=== PATIENT | female | born 1960 | race Caucasian/White ===

== ENCOUNTER 2023-02-16 06:53 | Day surgery (SDC) | payer OTHER ==
[~2023-02-16] VITALS: Ht 162.6 cm; Wt 58.5 kg
[2023-02-16] MEDS ORDERED: ESTRADIOL1 M1 PO (07:12)
--- NOTE | 2023-02-16 07:23 | NUR ---
02/16/23 0723 Sarita Figueroa 0713, SCOT 0701
[2023-02-16 08:35] VITALS: BP 122/76
== END 2023-02-16 08:55 | disposition home or self-care (01) ==
LOC: ORSCSDS 06:53
PROVIDERS: Ophthalmology
PROC: 08DJ3ZZ Extraction of Right Lens, Percutaneous Approach (ICD-10-PCS; principal; 2023-02-16 08:00)
DX: H25.11 Age-related nuclear cataract, right eye (principal); I10 Essential (primary) hypertension; Z79.899 Other long term (current) drug therapy
CPT/HCPCS: J2001; J2250; J3010; J3301; J7040; V2632

== ENCOUNTER 2025-03-26 08:04 | Day surgery (SDC) | payer OTHER ==
[~2025-03-26] VITALS: Ht 162.6 cm; Wt 61.4 kg
[~2025-03-26 08:04] MED LIST: Balanced Salt Epinephrine Irrigation Solution 500 mL IR SCH; ESTRADIOL1 M1 PO; Moxifloxacin HCL 0.5 MG/0.1 ML 0.4MLSYR LEFTEYE SCH; Ondansetron 4 MG SoluTab MM PRN; PHENYLEPHRINE\\TROPICAMIDE\\TETRACAINE OPHTHALMIC DILATING SOLN LEFTEYE PRN; Povidone-Iodine 450 DROP/30 ML Solution LEFTEYE SCH; Povidone-Iodine 450 DROP/30 ML Solution ONE; Tetracaine HCl/Pf 0.5% Opth Soln 4 ml ONE
--- NOTE | 2025-03-26 09:11 | NUR ---
03/26/25 0911 Jaya Banks CALL LIGHT WITHIN REACH. PT ON CONTINOUS PULSE OXIMETER. EYE DROPS IN PRE-OP AT 0905
--- NOTE | 2025-03-26 09:42 | NUR ---
03/26/25 0942 Kavitha Colmenares 0938 BP 124/73, O2 AT 99%, HR 51, RESP 16
[2025-03-26 09:58] VITALS: BP 120/80
== END 2025-03-26 10:16 | disposition home or self-care (01) ==
LOC: ORSCSDS 08:04
PROVIDERS: Student in an Organized Health Care Education/Training Program
PROC: 08RK3JZ Replacement of Left Lens with Synthetic Substitute, Percutaneous Approach (ICD-10-PCS; principal; 2025-03-26 10:00)
DX: H25.812 Combined forms of age-related cataract, left eye (principal); Z96.1 Presence of intraocular lens; Z79.899 Other long term (current) drug therapy
CPT/HCPCS: A9270; J2003; V2632